=== PATIENT | female | born 1960 | race Hispanic/Latino ===

== ENCOUNTER 2022-04-12 14:39 | Inpatient (IN) | payer OTHER, SELFPAY ==
[2022-04-12] MEDS ORDERED: Ketorolac Tromethamine 30 MG/ML VIAL ONE (15:19)
[2022-04-12] MEDS ORDERED: EPINEPHrine 1 MG/ML AMP ONE (15:28)
[2022-04-12] MEDS ORDERED: Bupivacaine 0.25% HCL 30 ML VIAL ONE (15:28)
[2022-04-12] MEDS ORDERED: Bupivacaine PF 0.5% 30 ML VIAL ONE (15:31)
[2022-04-12] MEDS ORDERED: fentaNYL PF 100 MCG/2 ML SYRINGE ONE (15:53)
[2022-04-12] MEDS ORDERED: NEOSTIGMINE 3 MG/3 ML SYR 3 MG/3 ML SYRINGE ONE (16:11)
[2022-04-12] MEDS ORDERED: Rocuronium Bromide 10 MG/ML (10ML VIAL) ONE (16:11)
[2022-04-12] MEDS ORDERED: Glycopyrrolate 0.2 MG/ML 5 ML SYRINGE ONE (16:11)
[2022-04-12] MEDS ORDERED: Ondansetron PF 4 MG/2 ML Vial ONE (16:11)
[2022-04-12] MEDS ORDERED: PROPOFOL 200 MG/20 ML VIAL ONE (16:11)
[2022-04-12] MEDS ORDERED: Dexamethasone 20 MG/5 ML VIAL ONE (16:11)
[2022-04-12] MEDS ORDERED: Succinylcholine 200 MG/10 ml SYRINGE FS ONE (16:11)
[2022-04-12] MEDS ORDERED: Meperidine HCl/PF 25 MG/ML VIAL SLOW IVP PRN (16:47)
[2022-04-12] MEDS ORDERED: Promethazine HCl 25 MG/ML VIAL IVPB PRN (16:47)
[2022-04-12] MEDS ORDERED: HYDROmorphone 2 MG/ML VIAL SLOW IVP PRN (16:47)
[2022-04-12] MEDS ORDERED: Ondansetron HCl/PF 4 MG/2 ML Vial IVP PRN (16:47)
[2022-04-12] MEDS ORDERED: traMADol HCl 50 MG TAB PO PRN (17:25)
[2022-04-12] MEDS ORDERED: Lorazepam 2 MG/ML VIAL SLOW IVP PRN (17:25)
[2022-04-12] MEDS ORDERED: Ondansetron ODT 4 MG TAB PO PRN (17:25)
[2022-04-12] MEDS ORDERED: Morphine 4 MG/ML VIAL SLOW IVP PRN (17:25)
[2022-04-12] MEDS ORDERED: hydrALAZINE 20 MG/ML VIAL SLOW IVP PRN (17:25)
[2022-04-12] MEDS ORDERED: Morphine 2 MG/ML VIAL SLOW IVP PRN (17:25)
[2022-04-12] MEDS ORDERED: Ondansetron PF 4 MG/2 ML Vial IVP PRN (17:25)
[2022-04-12] MEDS ORDERED: Acetaminophen 500 MG TAB PO PRN (17:28)
[2022-04-12] MEDS ORDERED: Ketorolac Tromethamine 30 MG/ML VIAL IVP PRN (17:28)
[2022-04-12] MEDS ORDERED: Fentanyl 100 MCG/2 ML VIAL ONE ×2 (17:41→18:21)
[2022-04-12] MEDS ORDERED: TETANUS, DIPHTHERIA TOX,ADULT (TDVAX) 0.5 ML VIAL IM ONE (18:00)
[2022-04-12 19:59] VITALS: BMI 33.3
[2022-04-12] MEDS: Enoxaparin Sodium 40 MG/0.4 ML SYRINGE SC SCH (20:51)
[2022-04-12] MEDS: Famotidine 20 MG TAB PO SCH (20:53)
[2022-04-13 06:30] LABS: #Lymphocytes 1.3 thou/uL (1.20-3.40); #Monocytes 1.1 thou/uL (0.11-0.59); #Neutrophils 12.2 thou/uL (1.40-6.50); %Basophils 0.1 % (0.0-1.0); %Eosinophils 0.1 % (0.0-10.0); %Lymphocytes 8.6 % (21.0-51.0); %Monocytes 7.8 % (0.0-10.0); %Neutrophils 83.5 % (42.0-75.0); Hemoglobin 10.7 g/dL (12.0-16.0); Mean Corpuscular HGB CONC 31.6 g/dL (32.0-36.0); Mean Corpuscular Volume 88.8 fL (78.0-98.0); Mean Platelet Volume 7.5 fL (7.4-10.4); Platelet Count 355 thou/uL (130-400); RBC Distribution Width 13.3 % (11.5-14.5); White Blood Cell (WBC) Count 14.6 thou/uL (4.8-10.8)
[2022-04-13 06:47] LABS: Anion Gap 14 mmol/L (10-20); BUN (Urea Nitrogen) 9 mg/dL (9.8-20.1); Calc. Creatinine Clearance 108 mL/min (70-130); Calcium 8.5 mg/dL (7.8-10.44); Carbon Dioxide 18 mmol/L (22-29); Chloride 107 mmol/L (98-107); Estimated GFR 85; Glucose 142 mg/dL (70-105); Potassium 3.7 mmol/L (3.5-5.1); Sodium 135 mmol/L (136-145)
[2022-04-13] MEDS: Famotidine 20 MG TAB PO SCH ×2 (08:23→19:46)
[2022-04-13] MEDS ORDERED: Ibuprofen 600 MG TAB PO PRN (15:00)
[2022-04-13] MEDS: Enoxaparin Sodium 40 MG/0.4 ML SYRINGE SC SCH (19:46)
[2022-04-14 05:12] VITALS: TEMP 97.8
[2022-04-14 08:59] VITALS: BP 130/80
[2022-04-14] MEDS ORDERED: Amoxicillin/Potassium Clav 875 MG TAB PO SCH (09:00)
== END 2022-04-14 09:49 | disposition home or self-care (01) | DRG 340 ==
LOC: SDC 14:39 → SURG B 19:50
PROVIDERS: ADMIT Specialist; ATTEND Specialist
PROC: 0DTJ4ZZ Resection of Appendix, Percutaneous Endoscopic Approach (ICD-10-PCS; principal; 2022-04-12)
DX: K35.33 Acute appendicitis with perforation, localized peritonitis, and gangrene, with abscess (principal); Z20.822 Contact with and (suspected) exposure to COVID-19; K42.9 Umbilical hernia without obstruction or gangrene
CPT/HCPCS: 36415; 80048; 85025; 88304; A4649; J0171; J1100; J1650; J1885; J2405; J2704; J3010; S0020

== ENCOUNTER 2022-04-25 21:29 | Emergency (ER) | payer SELFPAY | END 2022-04-26 02:25 | disposition home or self-care (01) | LOC: ERS 21:29 | DX: I82.4Z3 Acute embolism and thrombosis of unspecified deep veins of distal lower extremity, bilateral (principal) | CPT/HCPCS: 93970 ==

== ENCOUNTER 2022-07-04 13:28 | Inpatient (IN) | payer OTHER, SELFPAY ==
[~2022-07-04 13:28] MED LIST: Iopamidol-370 76% 500 ML 1 ML ONE
[2022-07-04 14:13] LABS: #Lymphocytes 2.1 thou/uL (1.20-3.40); #Monocytes 0.8 thou/uL (0.11-0.59); #Neutrophils 13.1 thou/uL (1.40-6.50); %Basophils 0.2 % (0.0-1.0); %Eosinophils 0.2 % (0.0-10.0); %Lymphocytes 12.9 % (21.0-51.0); %Neutrophils 81.8 % (42.0-75.0); Hemoglobin 11.2 g/dL (12.0-16.0); Mean Corpuscular HGB CONC 31.9 g/dL (32.0-36.0); Mean Corpuscular Hemoglobin 25.8 pg (27.0-31.0); Mean Corpuscular Volume 80.9 fl (78.0-98.0); Mean Platelet Volume 6.8 fL (7.4-10.4); Platelet Count 720 10x3/uL (130-400); RBC Distribution Width 13.6 % (11.5-14.5); Red Blood Cell (RBC) Count 4.34 mill/uL (4.20-5.40)
[2022-07-04 14:36] LABS: ALT (SGPT) 17 U/L (8-55); AST (SGOT) 17 U/L (5-34); Albumin 3.8 g/dL (3.5-5.0); Alkaline Phosphatase 183 U/L (40-110); Anion Gap 15 mmol/L (10-20); BUN (Urea Nitrogen) 8 mg/dL (9.8-20.1); Bilirubin, Total 0.8 mg/dL (0.2-1.2); Calc. Creatinine Clearance 0 mL/min (70-130); Calcium 9.9 mg/dL (7.8-10.44); Carbon Dioxide 24 mmol/L (22-29); Chloride 99 mmol/L (98-107); Estimated GFR 92; Globulin 5.6 g/dL (2.4-3.5); Glucose 124 mg/dL (70-105); Lipase 20 U/L (8-78); Potassium 3.8 mmol/L (3.5-5.1); Protein, Total 9.4 g/dL (6.0-8.3); Sodium 134 mmol/L (136-145)
[2022-07-04] MEDS ORDERED: Ondansetron PF 4 MG/2 ML Vial ONE (16:46)
[2022-07-04] MEDS ORDERED: Morphine 4 MG/ML VIAL ONE (16:46)
[2022-07-04] MEDS ORDERED: Piperacillin/Tazobactam 4.5 GM VIAL ONE (17:54)
[2022-07-04 19:14] LABS: Bacteria/HPF None Seen HPF (None Seen); Bilirubin Negative (Negative); Blood, Urine 2+ (Negative); Clarity Clear (Clear); Glucose, Urine (Dipstick) Normal (Negative); Ketone, Urine 60 mg/dL (Negative); Leukocyte Negative Leu/uL (Negative); Nitrite Negative (Negative); Protein, Urine (Dipstick) 10 mg/dL (Neg-Trace); RBC/HPF 21-50 HPF (0-3); Squamous Epithelial None Seen HPF (0-3); Urobilinogen Normal mg/dL (Less than 2); WBC/HPF 0-3 HPF (0-3); pH, Urine 6.5 (5.0-9.0)
[2022-07-04 19:15] LABS: Specific Gravity, Urine 1.046 (1.002-1.036)
[2022-07-04] MEDS ORDERED: Vancomycin 1 GM/200 ML (FROZEN) BAG ONE (20:50)
[2022-07-04] MEDS ORDERED: Ketorolac Tromethamine 30 MG/ML VIAL IVP PRN (21:50)
[2022-07-04] MEDS ORDERED: Morphine 4 MG/ML VIAL SLOW IVP PRN (21:54)
[2022-07-04] MEDS: Acetaminophen 500 MG TAB PO SCH (22:12)
[2022-07-04 22:13] VITALS: BMI 26.4
[2022-07-04] MEDS ORDERED: Apixaban 5 MG TAB PO SCH (23:00)
[2022-07-05] MEDS: Lactated Ringer's 1,000 ML IV SCH ×3 (00:27→20:46)
[2022-07-05] MEDS: Piperacillin/Tazobactam 3.375 GM in Sodium Chloride 0.9% 100 ML IVPB SCH ×3 (00:40→23:35)
[2022-07-05] MEDS: Acetaminophen 500 MG TAB PO SCH ×3 (04:53→16:48)
[2022-07-05 06:00] LABS: Mean Corpuscular HGB CONC 32.6 g/dL (32.0-36.0); Mean Corpuscular Hemoglobin 26.5 pg (27.0-31.0); Mean Corpuscular Volume 81.4 fl (78.0-98.0); Mean Platelet Volume 8.1 fL (7.4-10.4); Platelet Count 428 10x3/uL (130-400); RBC Distribution Width 13.6 % (11.5-14.5); Red Blood Cell (RBC) Count 3.78 mill/uL (4.20-5.40); White Blood Cell (WBC) Count 17.2 10x3/uL (4.8-10.8)
[2022-07-05 06:20] LABS: ALT (SGPT) 9 U/L (8-55); AST (SGOT) 19 U/L (5-34); Alkaline Phosphatase 150 U/L (40-110); Anion Gap 16 mmol/L (10-20); BUN (Urea Nitrogen) 5 mg/dL (9.8-20.1); Bilirubin, Total 0.8 mg/dL (0.2-1.2); Calc. Creatinine Clearance 90 mL/min (70-130); Calcium 8.6 mg/dL (7.8-10.44); Carbon Dioxide 17 mmol/L (22-29); Chloride 106 mmol/L (98-107); Estimated GFR 96; Globulin 4.7 g/dL (2.4-3.5); Glucose 75 mg/dL (70-105); Protein, Total 7.7 g/dL (6.0-8.3); Sodium 135 mmol/L (136-145)
[2022-07-05] MEDS: Apixaban 5 MG TAB PO SCH ×2 (07:53→20:46)
[2022-07-05 09:08] LABS: Band 4 % (5-11); Burr Cells SLIGHT = 2-5 cells (100X) (0-1/hpf); Lymphocytes 24 % (21-51); MDiff Complete? YES; Monocytes 5 % (0-10); Neutrophil 66 % (42-75); Platelet Morphology Comment Appears Increased; Polychromasia SLIGHT = 2-3 cells (100X) (0-2/hpf)
[2022-07-05] MEDS ORDERED: cefTRIAXone\\ROCEPHIN 2 GM in Sodium Chloride 0.9% 100 ML IVPB SCH (10:00)
[2022-07-05] MEDS ORDERED: metroNIDAZOLE 500 MG in Premix Bag 1 BAG IVPB SCH (14:00)
[2022-07-06] MEDS: Acetaminophen 500 MG TAB PO SCH ×3 (01:42→16:30)
[2022-07-06] MEDS: Ondansetron ODT 4 MG TAB PO PRN (01:43)
[2022-07-06] MEDS: Lactated Ringer's 1,000 ML IV SCH (02:40)
[2022-07-06 05:48] LABS: #Eosinphils 0.1 thou/uL (0.0-0.7); #Lymphocytes 3.4 thou/uL (1.20-3.40); #Monocytes 1.2 thou/uL (0.11-0.59); #Neutrophils 12.8 thou/uL (1.40-6.50); %Basophils 0.2 % (0.0-1.0); %Eosinophils 0.4 % (0.0-10.0); %Lymphocytes 19.6 % (21.0-51.0); %Monocytes 6.9 % (0.0-10.0); Hemoglobin 8.8 g/dL (12.0-16.0); Mean Corpuscular HGB CONC 31.6 g/dL (32.0-36.0); Mean Corpuscular Hemoglobin 25.9 pg (27.0-31.0); Mean Platelet Volume 6.8 fL (7.4-10.4); Platelet Count 617 10x3/uL (130-400); RBC Distribution Width 13.5 % (11.5-14.5); Red Blood Cell (RBC) Count 3.41 mill/uL (4.20-5.40); White Blood Cell (WBC) Count 17.5 10x3/uL (4.8-10.8)
[2022-07-06 05:54] LABS: ALT (SGPT) 10 U/L (8-55); AST (SGOT) 12 U/L (5-34); Albumin 2.8 g/dL (3.5-5.0); Alkaline Phosphatase 142 U/L (40-110); Anion Gap 11 mmol/L (10-20); BUN (Urea Nitrogen) Less than 4 mg/dL (9.8-20.1); Bilirubin, Total 0.6 mg/dL (0.2-1.2); Calc. Creatinine Clearance 101 mL/min (70-130); Calcium 8.3 mg/dL (7.8-10.44); Carbon Dioxide 25 mmol/L (22-29); Chloride 105 mmol/L (98-107); Estimated GFR 102; Globulin 3.7 g/dL (2.4-3.5); Glucose 96 mg/dL (70-105); Potassium 3.4 mmol/L (3.5-5.1); Protein, Total 6.5 g/dL (6.0-8.3); Sodium 138 mmol/L (136-145)
[2022-07-06] MEDS: Piperacillin/Tazobactam 3.375 GM in Sodium Chloride 0.9% 100 ML IVPB SCH ×3 (06:08→23:14)
[2022-07-06] MEDS: Apixaban 5 MG TAB PO SCH ×2 (09:03→19:52)
[2022-07-06 09:06] LABS: Reticulocyte Count 1.1 % (0.5-1.5)
[2022-07-06] MEDS ORDERED: Potassium Chloride 20 MEQ TAB PO SCH (09:30)
[2022-07-07] MEDS: Acetaminophen 500 MG TAB PO SCH (01:02)
[2022-07-07] MEDS ORDERED: Loperamide HCl 2 MG CAP PO PRN (01:18)
[2022-07-07 05:47] LABS: #Eosinphils 0.2 thou/uL (0.0-0.7); #Lymphocytes 3.9 thou/uL (1.20-3.40); #Monocytes 0.9 thou/uL (0.11-0.59); #Neutrophils 11.5 thou/uL (1.40-6.50); %Basophils 0.3 % (0.0-1.0); %Lymphocytes 23.8 % (21.0-51.0); %Monocytes 5.6 % (0.0-10.0); %Neutrophils 69.4 % (42.0-75.0); Hemoglobin 8.9 g/dL (12.0-16.0); Mean Corpuscular HGB CONC 31.1 g/dL (32.0-36.0); Mean Corpuscular Hemoglobin 25.7 pg (27.0-31.0); Mean Corpuscular Volume 82.5 fl (78.0-98.0); Platelet Count 687 10x3/uL (130-400); RBC Distribution Width 13.8 % (11.5-14.5); Red Blood Cell (RBC) Count 3.47 mill/uL (4.20-5.40); White Blood Cell (WBC) Count 16.5 10x3/uL (4.8-10.8)
[2022-07-07] MEDS: Piperacillin/Tazobactam 3.375 GM in Sodium Chloride 0.9% 100 ML IVPB SCH (06:05)
[2022-07-07 06:09] LABS: ALT (SGPT) 12 U/L (8-55); AST (SGOT) 16 U/L (5-34); Albumin 2.9 g/dL (3.5-5.0); Alkaline Phosphatase 173 U/L (40-110); Anion Gap 11 mmol/L (10-20); BUN (Urea Nitrogen) 4 mg/dL (9.8-20.1); Bilirubin, Total 0.5 mg/dL (0.2-1.2); Calc. Creatinine Clearance 95 mL/min (70-130); Calcium 8.8 mg/dL (7.8-10.44); Carbon Dioxide 25 mmol/L (22-29); Chloride 104 mmol/L (98-107); Estimated GFR 100; Globulin 4.4 g/dL (2.4-3.5); Glucose 89 mg/dL (70-105); Potassium 3.4 mmol/L (3.5-5.1); Protein, Total 7.3 g/dL (6.0-8.3); Sodium 137 mmol/L (136-145)
[2022-07-07] MEDS ORDERED: Potassium Chloride 20 MEQ TAB PO SCH (08:00)
[2022-07-07] MEDS: Apixaban 5 MG TAB PO SCH ×2 (08:26→19:16)
[2022-07-07] MEDS ORDERED: Polyethylene Glycol 3350 17 GM Packet PO SCH (09:00)
[2022-07-07] MEDS ORDERED: Saccharomyces boulardii 250 MG CAP PO SCH (09:30)
[2022-07-07] MEDS ORDERED: Amoxicillin/Potassium Clav 500 MG TAB PO SCH (09:30)
[2022-07-07] MEDS: Acetaminophen 500 MG TAB PO PRN ×2 (11:13→19:10)
[2022-07-07 12:06] LABS: Campy jejuni + coli by PCR Negative (Negative); STEC Shiga Toxin 1+2 Negative (Negative); Salmonella spp. by PCR Negative (Negative); Shigella spp + EIEC by PCR Negative (Negative)
[2022-07-07] MEDS: Amoxicillin/Potassium Clav 875 MG TAB PO SCH (19:16)
[2022-07-08 05:10] LABS: #Eosinphils 0.1 thou/uL (0.0-0.7); #Lymphocytes 3.2 thou/uL (1.20-3.40); #Monocytes 1.1 thou/uL (0.11-0.59); %Basophils 0.1 % (0.0-1.0); %Eosinophils 0.8 % (0.0-10.0); %Lymphocytes 19.3 % (21.0-51.0); %Monocytes 6.8 % (0.0-10.0); Hemoglobin 9.1 g/dL (12.0-16.0); Mean Corpuscular HGB CONC 31.3 g/dL (32.0-36.0); Mean Corpuscular Hemoglobin 25.5 pg (27.0-31.0); Mean Corpuscular Volume 81.4 fl (78.0-98.0); Mean Platelet Volume 6.6 fL (7.4-10.4); Platelet Count 747 10x3/uL (130-400); RBC Distribution Width 13.9 % (11.5-14.5); Red Blood Cell (RBC) Count 3.55 mill/uL (4.20-5.40); White Blood Cell (WBC) Count 16.5 10x3/uL (4.8-10.8)
[2022-07-08 05:35] LABS: ALT (SGPT) 12 U/L (8-55); AST (SGOT) 17 U/L (5-34); Alkaline Phosphatase 254 U/L (40-110); Anion Gap 14 mmol/L (10-20); BUN (Urea Nitrogen) Less than 4 mg/dL (9.8-20.1); Bilirubin, Total 0.4 mg/dL (0.2-1.2); Calc. Creatinine Clearance 103 mL/min (70-130); Calcium 8.8 mg/dL (7.8-10.44); Carbon Dioxide 23 mmol/L (22-29); Chloride 103 mmol/L (98-107); Estimated GFR 102; Glucose 85 mg/dL (70-105); Potassium 3.9 mmol/L (3.5-5.1); Sodium 136 mmol/L (136-145)
[2022-07-08] MEDS: Ondansetron ODT 4 MG TAB PO PRN (05:36)
[2022-07-08] MEDS: Acetaminophen 500 MG TAB PO PRN ×2 (05:38→20:45)
[2022-07-08] MEDS: Amoxicillin/Potassium Clav 875 MG TAB PO SCH (08:22)
[2022-07-08] MEDS: Apixaban 5 MG TAB PO SCH ×2 (08:22→20:44)
[2022-07-08] MEDS: Saccharomyces boulardii 250 MG CAP PO SCH (14:57)
[2022-07-08] MEDS: cefTRIAXone\\ROCEPHIN 1 GM in Sodium Chloride 0.9% 100 ML IVPB SCH (14:57)
[2022-07-08] MEDS: metroNIDAZOLE 500 MG in Premix Bag 1 BAG IVPB SCH ×2 (15:33→23:53)
[2022-07-09] MEDS: Acetaminophen 500 MG TAB PO PRN (04:51)
[2022-07-09 05:37] LABS: #Eosinphils 0.1 thou/uL (0.0-0.7); #Lymphocytes 2.9 thou/uL (1.20-3.40); #Monocytes 1.3 thou/uL (0.11-0.59); #Neutrophils 14.4 thou/uL (1.40-6.50); %Eosinophils 0.5 % (0.0-10.0); %Lymphocytes 15.3 % (21.0-51.0); %Monocytes 7.1 % (0.0-10.0); %Neutrophils 77.1 % (42.0-75.0); Hemoglobin 9.2 g/dL (12.0-16.0); Mean Corpuscular HGB CONC 32.5 g/dL (32.0-36.0); Mean Corpuscular Hemoglobin 26.3 pg (27.0-31.0); Mean Platelet Volume 6.5 fL (7.4-10.4); Platelet Count 763 10x3/uL (130-400); RBC Distribution Width 13.8 % (11.5-14.5); Red Blood Cell (RBC) Count 3.49 mill/uL (4.20-5.40); White Blood Cell (WBC) Count 18.7 10x3/uL (4.8-10.8)
[2022-07-09 05:56] LABS: ALT (SGPT) 11 U/L (8-55); AST (SGOT) 17 U/L (5-34); Albumin 3.1 g/dL (3.5-5.0); Alkaline Phosphatase 285 U/L (40-110); Anion Gap 14 mmol/L (10-20); BUN (Urea Nitrogen) 5 mg/dL (9.8-20.1); Bilirubin, Total 0.4 mg/dL (0.2-1.2); Calc. Creatinine Clearance 108 mL/min (70-130); Carbon Dioxide 23 mmol/L (22-29); Chloride 101 mmol/L (98-107); Estimated GFR 103; Globulin 4.6 g/dL (2.4-3.5); Glucose 80 mg/dL (70-105); Potassium 3.1 mmol/L (3.5-5.1); Protein, Total 7.7 g/dL (6.0-8.3); Sodium 135 mmol/L (136-145)
[2022-07-09] MEDS ORDERED: Potassium Chloride 20 MEQ TAB PO SCH (06:45)
[2022-07-09] MEDS: Apixaban 5 MG TAB PO SCH ×2 (08:05→20:22)
[2022-07-09] MEDS: metroNIDAZOLE 500 MG in Premix Bag 1 BAG IVPB SCH ×2 (08:06→15:38)
[2022-07-09] MEDS: Saccharomyces boulardii 250 MG CAP PO SCH (14:52)
[2022-07-09] MEDS: cefTRIAXone\\ROCEPHIN 1 GM in Sodium Chloride 0.9% 100 ML IVPB SCH (14:53)
[2022-07-10] MEDS: metroNIDAZOLE 500 MG in Premix Bag 1 BAG IVPB SCH ×2 (00:56→08:43)
[2022-07-10 06:07] LABS: #Eosinphils 0.2 thou/uL (0.0-0.7); #Lymphocytes 3.8 thou/uL (1.20-3.40); #Monocytes 1.2 thou/uL (0.11-0.59); #Neutrophils 8.6 thou/uL (1.40-6.50); %Basophils 0.1 % (0.0-1.0); %Eosinophils 1.3 % (0.0-10.0); %Lymphocytes 27.7 % (21.0-51.0); %Monocytes 8.9 % (0.0-10.0); Hemoglobin 8.4 g/dL (12.0-16.0); Mean Corpuscular HGB CONC 31.6 g/dL (32.0-36.0); Mean Corpuscular Hemoglobin 25.7 pg (27.0-31.0); Mean Corpuscular Volume 81.3 fl (78.0-98.0); Mean Platelet Volume 6.6 fL (7.4-10.4); Platelet Count 777 10x3/uL (130-400); RBC Distribution Width 13.8 % (11.5-14.5); Red Blood Cell (RBC) Count 3.28 mill/uL (4.20-5.40); White Blood Cell (WBC) Count 13.8 10x3/uL (4.8-10.8)
[2022-07-10 06:23] LABS: ALT (SGPT) 8 U/L (8-55); AST (SGOT) 12 U/L (5-34); Albumin 2.9 g/dL (3.5-5.0); Alkaline Phosphatase 246 U/L (40-110); Anion Gap 14 mmol/L (10-20); BUN (Urea Nitrogen) 5 mg/dL (9.8-20.1); Bilirubin, Total 0.3 mg/dL (0.2-1.2); Calc. Creatinine Clearance 112 mL/min (70-130); Calcium 8.5 mg/dL (7.8-10.44); Carbon Dioxide 24 mmol/L (22-29); Chloride 103 mmol/L (98-107); Estimated GFR 104; Globulin 3.8 g/dL (2.4-3.5); Glucose 79 mg/dL (70-105); Potassium 3.7 mmol/L (3.5-5.1); Protein, Total 6.7 g/dL (6.0-8.3); Sodium 137 mmol/L (136-145)
[2022-07-10] MEDS: Apixaban 5 MG TAB PO SCH (08:43)
[2022-07-10 08:59] VITALS: BP 107/54; TEMP 98.1
[2022-07-13 14:15] LABS: Fatty Acid Droplets Normal (.); Neutral Fats And/Or Soaps Normal (.)
== END 2022-07-10 13:00 | disposition home or self-care (01) | DRG 871 ==
LOC: ERS 13:28 → MSONC 18:28
PROVIDERS: ADMIT Family Medicine; ATTEND Emergency Medicine
DX: A41.9 Sepsis, unspecified organism (principal); K57.20 Diverticulitis of large intestine with perforation and abscess without bleeding; K65.1 Peritoneal abscess; Z20.822 Contact with and (suspected) exposure to COVID-19; D69.6 Thrombocytopenia, unspecified; R31.9 Hematuria, unspecified; K44.9 Diaphragmatic hernia without obstruction or gangrene; K59.00 Constipation, unspecified; N32.89 Other specified disorders of bladder; N71.9 Inflammatory disease of uterus, unspecified; Z86.718 Personal history of other venous thrombosis and embolism; Z90.49 Acquired absence of other specified parts of digestive tract; Z79.01 Long term (current) use of anticoagulants
CPT/HCPCS: 36415; 74177; 80053; 81003; 81015; 82378; 82705; 83605; 83690; 84145; 85025; 85046; 87040; 87324; 87449; 87505; 93005; 96374; 96375; J0696; J1885; J2270; J2405; J2543; J3370-JW; J3490; J7120; Q0162; Q9967; U0003; U0005